=== PATIENT | male | born 1965 | race American Indian/Alaskan Native ===

== ENCOUNTER 2017-11-19 12:13 | Emergency (ER) | payer MEDICARE, MEDICAID ==
[2017-11-19 12:13] VITALS: BMI 24.1
[2017-11-19 12:36] VITALS: BP 112/76; PULSE 84; RESP 18; TEMP 98; O2SAT 98
[2017-11-19] MEDS ORDERED: Oxycodone/Acetaminophen 5/325 mg Tab PO STA (12:41)
[2017-11-19] MEDS ORDERED: Oxycodone/Acetaminophen 5/325 mg Tab ONE (12:48)
--- NOTE | 2017-11-19 12:49 | ED PDOC ---
Upper Extremity Pain/Injury Time Seen by Provider: 11/19/17 12:27 Chief Complaint (Nursing): Finger,Hand,&Wrist Chief Complaint (Provider): Right Hand Injury History Per: Patient History/Exam Limitations: no limitations Onset/Duration Of Symptoms: Days (x1 week) Current Symptoms Are (Timing): Still Present Quality: "Pain" Severity: None Pain Scale Rating Of: 5 Exacerbating Factor(s): Movement Additional Complaint(s): 52 year old male presents to the emergency room complaining of pain in his left hand. Patient states that about 1 week ago he broke his arm and has been experiencing pain in his left arm ever since. He states that initially he was seen at [facility] and his hand was placed in a splint but report that the pain worsened when the splint was placed. Patient states that he made an appointment with and orthopedist but is unable to be seen until November 26. He further states that he went to the clinic because of the excessive pain and was told to present to the ED because of the excessive pain. Denies numbness, tingling, loss of sensation. Of note: Patient states that he is a dialysis patient and has dialysis 3 times a week (Saturday, Saturday) PMD: [facility] Past Medical History Reviewed: Historical Data, Nursing Documentation, Vital Signs Vital Signs: Last Vital Signs Temp 98 F 11/19/17 12:29 Pulse 84 11/19/17 12:29 Resp 18 11/19/17 12:29 BP 112/76 11/19/17 12:29 Pulse Ox 98 11/19/17 12:29 - Medical History PMH: CAD, CHF, COPD, HIV, HTN, End Stage Renal Disease, Chronic Kidney Disease, Sleep Apnea - Surgical History Surgical History: No Surg Hx - Family History Family History: States: Unknown Family Hx - Immunization History Hx Tetanus Toxoid Vaccination: No Hx Influenza Vaccination: No Hx Pneumococcal Vaccination: No - Home Medications Home Medications: Ambulatory Orders Medication Instructions Recorded Fluticasone/Salmeterol 250/50 1 dsk IH Q12 PRN 08/19/15 [Advair Diskus 250/50] Metoprolol Succinate 50 mg PO DAILY 08/19/15 Minoxidil 2.5 mg PO DAILY 08/19/15 cloNIDine [Catapres] 0.2 mg PO HS 08/19/15 Abacavir Sulfate [Abacavir] 2 tab PO DAILY 09/22/15 Lamivudine/Zidovudine [Combivir 1 tab PO DAILY 09/22/15 Tablet] Acetaminophen/Hydrocodone Bi 1 tab PO Q6H PRN #8 tab 10/30/17 [Vicodin 300 mg-5 mg] Hydrocodone/Acetaminophen 1 each PO Q8 PRN #8 tablet 11/19/17 [Hydrocodone-Acetamin 5-300 mg] - Allergies Allergies/Adverse Reactions: Allergies Allergy/AdvReac Type Severity Reaction Status Date / Time No Known Allergies Allergy Verified 11/19/17 12:29 Review of Systems Musculoskeletal: Positive for: Arm Pain (left) Physical Exam - Reviewed Nursing Documentation Reviewed: Yes Vital Signs Reviewed: Yes - Physical Exam Appears: Positive for: Non-toxic, No Acute Distress Skin: Positive for: Normal Color, Warm, Dry. Negative for: Rash Pulses-Radial (L): 2+ Pulses-Radial (R): 2+ Extremity: Positive for: Normal ROM (limited ROM of left hand secondary to pain) , Tenderness (mild tenderness of left dorsal hand over 5th CIP), Capillary Refill (less than 2 seconds), Swelling (swelling to left dorsal hand over 5th CIP). Negative for: Calf Tenderness, Deformity Neurologic/Psych: Positive for: Alert, Oriented, Gait - ECG O2 Sat by Pulse Oximetry: 98 (RA) Pulse Ox Interpretation: Normal - Radiology X-Ray: Interpreted by Me (L hand x-ray) X-Ray Interpretation: Other (minimally displaced distal 5th MCP fx (no acute changes from x-ray done on 10/30/2017.) Medical Decision Making Medical Decision Makin Initial Impression 52 year old male presenting with injury to left arm Initial Plan: * RAD oxycodone 1 tab PO * Zofran 4mg PO * RAD Left Hand * Reevaluation 1245 Patient searched on [facility] and made aware. Last prescribed Vicodin on which patient did admit to and previous narcotic prescription was in early 2017. Due to patients acute trauma a 3 day supply of Vicodin will be supplied. Advised that he will no longer be prescribed narcotics in the emergency department and also instructed to keep his appointment with Dr. Omalley as scheduled. 1311 PROCEDURE: Left Hand Radiographs. HISTORY: trauma COMPARISON: None. FINDINGS: BONES: Current study reveals a boxer fracture of the distal 5th metacarpal with radial and palmar angulation of the distal fragment. There is overlying soft tissue swelling most pronounced along the dorsal lateral border of the distal 5th metacarpal. JOINTS: Normal. No osteoarthritic changes. SOFT TISSUES: Normal. OTHER FINDINGS: None. IMPRESSION: Boxer fracture distal 5th metacarpal with radial and palmar angulation of distal fragment. There is mild overlying soft tissue swelling. PATRICIA DAI, thank you for letting us take care of you today. Your provider was Skyler Oliveros PA-C and you were treated for LT HAND INJURY. The emergency medical care you received today was directed at your acute symptoms. If you were prescribed any medication, please fill it and take as directed. It may take several days for your symptoms to resolve. Return to the Emergency Department if your symptoms worsen, do not improve, or if you have any other problems. Please contact your doctor or call one of the physicians/clinics you have been referred to that are listed on the Patient Visit Information form that is included in your discharge packet. Bring any paperwork you were given at discharge with you along with any medications you are taking to your follow up visit. Our treatment cannot replace ongoing medical care by a primary care provider outside of the emergency department. Thank you for allowing the [facility] team to be part of your care today. If you had an X-Ray or CT scan: A Radiologist will review the ED reading if any change in treatment is needed we will contact you. ----- Documented by Guadalupe wiley acting as a scribe for Skyler Oliveros PA-C. All medical record entries made by the Scribe were at my direction and personally dictated by me. I have reviewed the chart and agree that the record accurately reflects my personal performance of the history, physical exam, medical decision making, and the department course for this patient. I have also personally directed, reviewed, and agree with the discharge instructions and disposition. Procedures - Time-Out Type of Procedure: Splint placement Site of Procedure: L hand PA/Tech: [place] - Splinting Location: L hand Hand-Made Type: orthoglass Splint: ulnar (ulnar gutter splint) Pre-Proc Neuro Vasc Exam: normal Post-Proc Neuro Vasc Exam: normal Disposition - Clinical Impression Clinical Impression: Hand fracture, left - Patient ED Disposition Is Patient to be Admitted: No Counseled Patient/Family Regarding: Studies Performed, Need For Followup, Rx Given - Disposition Disposition: Routine/Home Disposition Time: 13:05 Condition: STABLE Additional Instructions: Follow up with Dr. Menjivar, hand surgeon, on 11/26/2017 as scheduled without fail. Return to ED immediately if symptoms worsen. Prescriptions: Hydrocodone/Acetaminophen [Hydrocodone-Acetamin 5-300 mg] 1 each PO Q8 PRN #8 tablet PRN Reason: pain Instructions: Hand Fracture (DC) Forms: [facility] (Thai) Print Language: PALAUAN - POA Present On Arrival: None
--- NOTE | 2017-11-19 13:13 | RAD ---
PROCEDURE: Left Hand Radiographs. HISTORY: trauma COMPARISON: None. FINDINGS: BONES: Current study reveals a boxer fracture of the distal 5th metacarpal with radial and palmar angulation of the distal fragment. There is overlying soft tissue swelling most pronounced along the dorsal lateral border of the distal 5th metacarpal. JOINTS: Normal. No osteoarthritic changes. SOFT TISSUES: Normal. OTHER FINDINGS: None. IMPRESSION: Boxer fracture distal 5th metacarpal with radial and palmar angulation of distal fragment. There is mild overlying soft tissue swelling.
== END 2017-11-19 13:20 | disposition home or self-care (01) ==
LOC: H.ER 12:13
DX: Z47.89 Encounter for other orthopedic aftercare (principal)

== ENCOUNTER 2018-01-21 14:21 | Emergency (ER) | payer MEDICARE, MEDICAID ==
[2018-01-21 14:22] VITALS: BMI 24.1
[2018-01-21 14:32] VITALS: BP 120/72; PULSE 86; RESP 18; TEMP 98.7; O2SAT 97
[2018-01-21] MEDS ORDERED: Oxycodone/Acetaminophen 5/325 mg Tab PO STA (14:47)
--- NOTE | 2018-01-21 14:50 | ED PDOC ---
Upper Extremity Pain/Injury Time Seen by Provider: 01/21/18 14:31 Chief Complaint (Nursing): Finger,Hand,&Wrist Chief Complaint (Provider): Finger,Hand,&Wrist History Per: Patient History/Exam Limitations: no limitations Onset/Duration Of Symptoms: Persistent Current Symptoms Are (Timing): Still Present Additional Complaint(s): 52 year old male arrives to ED with complaints of persistent left hand pain status post sustaining fracture on 10/30/17. Patient had a follow up visit at [facility] earlier today, stating "they didn't do anything to help him". He denies any further medical complaints and requests pain medication and TAWNYA wrap. PMD: Dr. Shaji Hutson Past Medical History Reviewed: Historical Data, Nursing Documentation, Vital Signs Vital Signs: Last Vital Signs Temp 98.7 F 01/21/18 14:29 Pulse 86 01/21/18 14:29 Resp 18 01/21/18 14:29 BP 120/72 01/21/18 14:29 Pulse Ox 97 01/21/18 14:29 - Medical History PMH: CAD, CHF, COPD, HIV, HTN, End Stage Renal Disease (dialysis), Chronic Kidney Disease, Sleep Apnea - Family History Family History: States: Unknown Family Hx - Immunization History Hx Tetanus Toxoid Vaccination: No Hx Influenza Vaccination: No Hx Pneumococcal Vaccination: No - Home Medications Home Medications: Ambulatory Orders Medication Instructions Recorded Fluticasone/Salmeterol 250/50 1 dsk IH Q12 PRN 08/19/15 [Advair Diskus 250/50] Metoprolol Succinate 50 mg PO DAILY 08/19/15 Minoxidil 2.5 mg PO DAILY 08/19/15 cloNIDine [Catapres] 0.2 mg PO HS 08/19/15 Abacavir Sulfate [Abacavir] 2 tab PO DAILY 09/22/15 Lamivudine/Zidovudine [Combivir 1 tab PO DAILY 09/22/15 Tablet] Acetaminophen/Hydrocodone Bi 1 tab PO Q6H PRN #8 tab 10/30/17 [Vicodin 300 mg-5 mg] Hydrocodone/Acetaminophen 1 each PO Q8 PRN #8 tablet 11/19/17 [Hydrocodone-Acetamin 5-300 mg] Naproxen [Naprosyn] 1 tab PO BID PRN #20 tab 01/21/18 - Allergies Allergies/Adverse Reactions: Allergies Allergy/AdvReac Type Severity Reaction Status Date / Time No Known Allergies Allergy Verified 11/19/17 12:29 Review of Systems ROS Statement: Except As Marked, All Systems Reviewed And Found Negative Musculoskeletal: Positive for: Hand Pain (left) Physical Exam - Reviewed Nursing Documentation Reviewed: Yes Vital Signs Reviewed: Yes - Physical Exam Appears: Positive for: Well, Non-toxic, No Acute Distress Head Exam: Positive for: ATRAUMATIC, NORMAL INSPECTION, NORMOCEPHALIC Skin: Positive for: Normal Color (No erythema, no ecchymosis), Warm. Negative for: Rash Eye Exam: Positive for: Normal appearance ENT: Positive for: Normal ENT Inspection Cardiovascular/Chest: Negative for: Bradycardia, Tachycardia Respiratory: Negative for: Accessory Muscle Use, Respiratory Distress Extremity: Positive for: Normal ROM, Deformity (bony to left 5th metacarpal), Other (Pt opened soda in ER). Negative for: Swelling (left hand) Neurologic/Psych: Positive for: Alert (x3), Oriented - ECG O2 Sat by Pulse Oximetry: 97 (RA) Pulse Ox Interpretation: Normal Medical Decision Making Medical Decision Making: Initial Impression: Hand pain Initial Plan: * Percocet 5/325mg PO * TAWNYA wrap for left hand Time: 1316 --Old charts reviewed: patient was seen at [facility] on 10/30/17 with left 5th metacarpal fracture. Follow up XR performed today, (-) new fracture noted. Time: 1450 --Upon provider reevaluation, patient is feeling better, medically stable and requires no further treatment in the ED at this time. Patient will be discharged home and advised to follow up with a hand surgeon. Counseling was provided and all questions were answered regarding diagnosis. There is agreement to discharge plan. Return if symptoms persist or worsen. Clinical Impression: Hand pain Scribe Attestation: Documented by Ember Hallman, acting as a scribe for Divya Ortiz PA-C. Provider Scribe Attestation: All medical record entries made by the Scribe were at my direction and personally dictated by me. I have reviewed the chart and agree that the record accurately reflects my personal performance of the history, physical exam, medical decision making, and the department course for this patient. I have also personally directed, reviewed, and agree with the discharge instructions and disposition. Disposition - Clinical Impression Clinical Impression: Hand pain - Patient ED Disposition Is Patient to be Admitted: No Counseled Patient/Family Regarding: Diagnosis, Need For Followup - Disposition Referrals: Aurelia Real MD [Staff Provider] - Disposition: Routine/Home Disposition Time: 14:50 Condition: STABLE Instructions: Hand Pain (DC) Forms: [facility] (Danish)
[2018-01-21] MEDS ORDERED: Oxycodone/Acetaminophen 5/325 mg Tab ONE (14:58)
== END 2018-01-21 19:35 | disposition home or self-care (01) ==
LOC: H.ER 14:21
DX: M79.642 Pain in left hand (principal)